=== PATIENT | male | born 1970 | race Caucasian/White ===

== ENCOUNTER 2018-03-31 08:04 | Inpatient (IN) | payer MEDICAID ==
[2018-03-31] VITALS (8 sets, daily range): BP systolic 110–158; BP diastolic 67–97
[~2018-03-31] VITALS: Ht 172.7 cm; Wt 104.5 kg
--- NOTE | ~2018-03-31 | EKG ---
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 Electronically Signed On 04-01-2018 18:53:37 PDT by Kaz Ivey MD CM:EKGRPT:ELECTROCARDIOGRAM REPORT [id number] CESAR PINEDA DRAFT REPORT CESAR RUSSELL MD
--- NOTE | ~2018-03-31 | EKG ---
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
--- NOTE | ~2018-03-31 | PR ---
[place], [place] PROGRESS NOTE NAME: GREGOR CONNOR JR [facility] [id number] UNIT #: [id number] ROOM: 401 DOCTOR: GORDON TURNER MD BIRTHDATE: [birth year] DOS: 04/01/2018 CARDIOLOGY PROGRESS NOTE SUBJECTIVE: The patient was seen in the Cardiology Department today 04/01/2018 for followup of atypical chest pain prior to a stress test. He is a 48-year-old man with a history of diabetes and a remote history of cigarette abuse. On the morning of admission, he was driving to work when he developed severe pain across his anterior chest associated with shortness of breath, lightheadedness, diaphoresis, nausea and vomiting. He came to the Emergency Room where serial cardiac troponin levels have been normal. Renal functions were normal. His sugar was elevated at 232 and his hemoglobin A1c is markedly elevated at 9.6. Symptoms have improved with time and he has ruled out for an acute myocardial infarction. We will proceed with a pharmacologic stress test today to further assess the cause of his chest pains. PHYSICAL EXAMINATION: VITAL SIGNS: His pulse is 83 and regular, blood pressure is 146/82. He is afebrile. His weight is 104.5 kilograms and he has a body mass index of 35. HEENT: Normocephalic, atraumatic. Extraocular muscles are intact. Sclerae are clear. Pupils equal, round and react to light. The oral mucosa is moist. Tongue is midline. NECK: Supple. He has no jugular distention. Carotids are full without bruits. LUNGS: Respirations are unlabored. Chest is clear to auscultation and percussion. HEART: Has a regular rhythm with an S4 gallop, but no S3 or murmur. ABDOMEN: Soft and normally active. EXTREMITIES: Showed no edema. IMPRESSION: 1. Precordial chest pain. Myocardial infarction has been ruled out. 2. Type 2 diabetes mellitus. Thus far, the patient shows no signs of an acute coronary syndrome. PLAN: We will proceed with a pharmacologic stress test today. Further recommendations will depend upon the results of the stress test. In the interim, he probably should be placed on an MARLY inhibitor for renal protection from diabetes. Efforts to control his diabetes will also be deferred to his primary physicians. [facility] and I thank the hospitalist physicians for asking our advice regarding his care. [place], [place] PROGRESS NOTE NAME: GREGOR CONNOR JR UNIT #: [id number] ROOM: 401 DOCTOR: GORDON TURNER MD BIRTHDATE: [birth year] GORDON TURNER MD CM:PNTRANS [id number] GORDON TURNER MD 04/01/18 1645 interface
--- NOTE | ~2018-03-31 | EKG ---
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 Electronically Signed On 04-01-2018 18:52:49 PDT by Kaz Ivey MD CM:EKGRPT:ELECTROCARDIOGRAM REPORT [id number] CESAR PINEDA DRAFT REPORT CESAR RUSSELL MD
[~2018-03-31 08:04] MED LIST: BACTRIM DS 8001 TA1 PO; EPI EZ PEN1 MG/ML IM; KEFLEX500 MG PO; MOTRIN800 MG PO; NKHM; VICODIN 5/500 505 MG PO; VICODIN ES 7501 TAB PO
[2018-03-31 08:19] LABS: BASO % 0.5 % (0.0-1.0); EOS # 0.2 10*3/uL (0.0-0.4); EOS % 3.6 % (1.0-4.0); HEMATOCRIT 42.1 % (42.0-52.0); HEMOGLOBIN 14.5 g/dl (14.0-18.0); LYMPH # 2.5 10*3/uL (1.3-4.4); LYMPH % 39.1 % (27.0-41.0); MEAN CELL VOLUME 86.8 fl (80.0-94.0); MEAN CORPUSCULAR HGB 29.9 pg (27.0-31.0); MEAN CORPUSCULAR HGB CONC 34.4 g/dl (33.0-37.0); MEAN PLATELET VOLUME 9.1 fl (9.6-12.3); MONO # 0.6 10*3/uL (0.1-1.0); MONO % 9.8 % (3.0-9.0); NEUT % 46.8 % (47.0-73.0); PLATELET COUNT AUTOMATED 193 10*3/uL (130-400); RED BLOOD COUNT 4.85 10*6/uL (4.50-5.90); RED CELL DISTRI WIDTH 12.4 % (0-14.5); WHITE BLOOD COUNT 6.4 10*3/uL (4.8-10.8)
[2018-03-31 08:27] LABS: ACT PARTIAL THROMBO TIME 24.5 SECONDS (20.8-31.5)
[2018-03-31 08:40] LABS: ALBUMIN 3.6 gm/dl (3.1-4.5); ALKALINE PHOSPHATASE 112 U/L (45-117); BUN 17 mg/dl (7-24); CHLORIDE 96 mmol/L (98-107); CREATININE 0.69 mg/dL (0.70-1.30); POTASSIUM 3.4 mmol/L (3.5-5.1); SGOT/AST 22 IU/L (3-35); SGPT/ALT 37 U/L (12-78); SODIUM 135 mmol/L (136-145); TOTAL PROTEIN 7.6 gm/dL (6.4-8.2)
[2018-03-31 08:43] LABS: TROPONIN I < 0.015 ng/ml (<0.045)
[2018-03-31 08:52] LABS: LIPASE 127 U/L (73-393)
[2018-03-31 08:57] LABS: ETHYL ALCOHOL < 3.0 mg/dl (<3)
[2018-03-31 14:53] LABS: URINE AMPHETAMINES < 1000 (1000ng/ml); URINE BARBITURATES < 200 (200ng/ml); URINE BENZODIAZEPINES < 200 (200ng/ml); URINE CANNABINOIDS (THC) > 50 (50ng/ml); URINE COCAINE > 300 (300ng/ml); URINE METHADONE < 300 (300ng/ml); URINE OPIATES < 300 (300ng/ml)
[2018-03-31 14:54] LABS: URINE PHENCYCLIDINE < 25 (25ng/ml)
[2018-04-01] VITALS: BP 160/89
[2018-04-01 00:30] VITALS: BP 146/82
[2018-04-01 06:24] LABS: BASO % 0.2 % (0.0-1.0); EOS # 0.3 10*3/uL (0.0-0.4); EOS % 3.3 % (1.0-4.0); HEMATOCRIT 41.8 % (42.0-52.0); HEMOGLOBIN 14.2 g/dl (14.0-18.0); LYMPH # 1.9 10*3/uL (1.3-4.4); LYMPH % 23.2 % (27.0-41.0); MEAN CELL VOLUME 88.6 fl (80.0-94.0); MEAN CORPUSCULAR HGB 30.1 pg (27.0-31.0); MEAN PLATELET VOLUME 9.7 fl (9.6-12.3); MONO # 0.8 10*3/uL (0.1-1.0); MONO % 9.2 % (3.0-9.0); NEUT # 5.3 10*3/uL (2.3-7.9); NEUT % 63.9 % (47.0-73.0); PLATELET COUNT AUTOMATED 193 10*3/uL (130-400); RED BLOOD COUNT 4.72 10*6/uL (4.50-5.90); RED CELL DISTRI WIDTH 12.5 % (0-14.5); WHITE BLOOD COUNT 8.3 10*3/uL (4.8-10.8)
[2018-04-01 06:32] LABS: BUN 19 mg/dl (7-24); CHLORIDE 99 mmol/L (98-107); CHOLESTEROL 174 mg/dL (<200); CREATININE 0.75 mg/dL (0.70-1.30); FREE T4 0.97 ng/dl (0.76-1.46); HDL CHOLESTEROL 53 mg/dl (40-60); LDL CHOLESTEROL 105 mg/dL (9-159); POTASSIUM 4.1 mmol/L (3.5-5.1); SODIUM 134 mmol/L (136-145); TRIGLYCERIDES 80 mg/dl (<150); VLDL CHOLESTEROL 16 mg/dL (6-40)
[2018-04-01 06:38] LABS: THYROID STIM HORMONE (HS) 0.547 uIU/ml (0.358-4.75)
[2018-04-01 07:25] LABS: VITAMIN D, 25-HYDROXY 16.4 ng/mL (30-100)
[2018-04-01 12:00] VITALS: BP 110/73
[2018-04-01 16:00] VITALS: BP 113/63
[2018-04-01] MEDS ORDERED: GLUCOPHAGE500 M1 PO (17:04)
== END 2018-04-01 18:41 | disposition home or self-care (01) | DRG 206 ==
LOC: ED 08:04 → 4E 09:14 → EDHOLD 09:14 → 4E 09:23
PROVIDERS: Emergency Medicine; Internal Medicine
PROC: 4A02XM4 Measurement of Cardiac Total Activity, External Approach (ICD-10-PCS; principal; 2018-04-01)
PROC: 3E073KZ Introduction of Other Diagnostic Substance into Coronary Artery, Percutaneous Approach (ICD-10-PCS; principal; 2018-04-01)
DX: M94.0 Chondrocostal junction syndrome [Tietze] (principal); E87.1 Hypo-osmolality and hyponatremia; I24.9 Acute ischemic heart disease, unspecified; K21.9 Gastro-esophageal reflux disease without esophagitis; E87.6 Hypokalemia; F17.210 Nicotine dependence, cigarettes, uncomplicated; I10 Essential (primary) hypertension; E11.65 Type 2 diabetes mellitus with hyperglycemia; Z88.0 Allergy status to penicillin; Z91.030 Bee allergy status; Z90.49 Acquired absence of other specified parts of digestive tract; Z87.81 Personal history of (healed) traumatic fracture; Z83.3 Family history of diabetes mellitus; Z82.49 Family history of ischemic heart disease and other diseases of the circulatory system; Z84.1 Family history of disorders of kidney and ureter; Z71.6 Tobacco abuse counseling; Z68.35 Body mass index [BMI] 35.0-35.9, adult

== ENCOUNTER → 2018-04-16 | Outpatient (CLI) | payer OTHER ==
[~2018-04-16] MED LIST changes: +GLUCOPHAGE500 M1 PO
== END | disposition home or self-care (01) ==
LOC: RESCLI 03:24
DX: Z09 Encounter for follow-up examination after completed treatment for conditions other than malignant neoplasm (principal); E11.65 Type 2 diabetes mellitus with hyperglycemia; E55.9 Vitamin D deficiency, unspecified; E66.9 Obesity, unspecified; Z88.8 Allergy status to other drugs, medicaments and biological substances

== ENCOUNTER 2019-06-27 20:48 | Emergency (ER) | payer SELFPAY ==
[~2019-06-27] VITALS: Ht 175.2 cm; Wt 102.1 kg
[2019-06-28] MEDS ORDERED: CEPHALEXIN500 M1 PO (01:26)
== END 2019-06-28 01:39 | disposition home or self-care (01) ==
LOC: ED 20:48
DX: S61.213A Laceration without foreign body of left middle finger without damage to nail, initial encounter (principal); E11.9 Type 2 diabetes mellitus without complications; I10 Essential (primary) hypertension; Z23 Encounter for immunization; Z87.891 Personal history of nicotine dependence; Z91.030 Bee allergy status; Z88.0 Allergy status to penicillin; W45.8XXA Other foreign body or object entering through skin, initial encounter; Y93.89 Activity, other specified; Y92.89 Other specified places as the place of occurrence of the external cause; Y99.8 Other external cause status